=== PATIENT | female | born 1960 | race Caucasian/White ===

== ENCOUNTER → 2017-06-09 | Outpatient (CLI) | payer OTHER ==
[~2017-06-09] VITALS: Ht 167.6 cm; Wt 99.8 kg
[~2017-06-09] MED LIST: ALLEGRA ALLERG180 MG PO; CALCIUM 500 +1 EAC5 PO; FLEXERIL PO; HYDROCHLOROTHIA25 M2 PO; LISINOPRIL10 MG PO; LOVASTATIN40 MG PO; NAPROSYN500 MG PO; SYNTHROID75 MCG PO; TYLENOL EXTRA500 MG PO; UNICOMPLEX M TA1 TA1 PO; VITAMIN D3400 UNIT PO; YUVAFEM10 MCG VAG
--- NOTE | ~2017-06-09 | HPC ---
[facility] [place] [address] PAIN MANAGEMENT CONSULTATION Name: SONDRA SO Room #: REG [facility] Leana.#: [id number] Admission: 06/09/17 Attend Phys: Dayo Shen DO Discharge: Date of : 62 Report #: [id number] THIS REPORT FOR: //name// CC: Kayli Shen The patient is a 56-year-old female seen in consultation at the request of Dr. Kayli Mathis, [facility] for assistance with management of chronic axial back pain, low back and right hip. The patient notes the pain has been problematic for years, but worse in the past 7-8 months without specific antecedent trauma or overuse. She notes pain paradoxically is better with movement, typically ambulation and worse with rotational movements of the torso. She has tried Naprosyn, Tylenol and Medrol Dosepak with transient improvement. She does physical therapy exercises 4 out of 7 days. She walks daily for about 30 minutes every morning, but pain continues to be problematic. She rates it as a 7/10 on a VAS. She describes continuous, steady, burning, aching, sharp and stabbing pain. Again pain is primarily in the low back, right hip and buttock and does not radiate down her leg. She has no myelopathic symptoms (no bowel or bladder continence changes, no saddle anesthesia and no loss of proprioception or lower extremity weakness). REVIEW OF SYSTEMS: Complete review of systems was attached to the chart and was gone over with the patient. She is . She does not smoke or drink alcohol to excess. History of hypertension treated with lisinopril and hydrochlorothiazide. Recently diagnosed with hypothyroidism and started on levothyroxine about 6 months ago. Dyslipidemia for which she takes lovastatin. She has had some chronic GI issues and on no medications for the same. She is tolerating Naprosyn 500 mg b.i.d. reasonably well at this time. Prior surgeries include left knee arthroscopy and microfracture, left foot bone spur excision in 2009, sinus surgery in 1995 and hysterectomy in 2003. The patient works as a enterprise data architect. She is keen to work despite pain. Remaining review of systems was noncontributory (negative). Pain impact score is 23/70. PHYSICAL EXAMINATION: VITAL SIGNS: Reveals a 5 feet 6 inches, 220 pounds female, BMI is 35.5 kilograms per meter squared. Blood pressure is 132/84, pulse 83, respirations are 16. Subjective pain score is 7-8 on a VAS. HEENT: Cranial nerves 2-12 are grossly intact. Pupils are equal, react to light and accommodation. Extraocular muscles are intact NECK: Cervical range of motion is full. Thyroid is modestly enlarged. NEUROLOGIC: She is alert and oriented to person, place and time and judged to be a reasonable historian. Upper extremity strength is preserved. HEART: Regular rhythm without murmur. LUNGS: Clear to auscultation. [address] [address] PAIN MANAGEMENT CONSULTATION Name: MATT SONila Adan Room #: REG JACQUELINE Cristobal#: [id number] Admission: 06/09/17 Attend Phys: Dayo Shen DO Discharge: Date of : 62 Report #: [id number] MUSCULOSKELETAL: She has modestly endomorphic build. Rises from chair using armrest. Diffuse tenderness across the low back and tender over the SI joints. Rotation and sidebending do exacerbate low back pain. Lower extremity strength is symmetric. Patellar and Achilles reflexes are preserved. Straight leg raise is negative. Grossly positive Elmer test, Gaenslen's and pelvic distraction, right greater than left side. DIAGNOSTIC STUDIES: Include MRI of the lumbar spine from 05/19/2017. Notes L3-L4 to have a left extraforaminal lateral disk protrusion superimposed on a disk bulge with some endplate remodeling. This does abut the left L3 nerve root. L4-L5 notes moderate facet arthropathy with severe central stenosis. L5-S1 notes right paracentral foraminal disk protrusion and left foraminal to extraforaminal disk protrusion as well superimposed on a disk bulge with endplate osteophytes. ASSESSMENT: 1. Bilateral SI joint pain, right greater than left, mediated pain lumbosacral spondylosis without myelopathy. 2. Lumbar spondylosis and spinal stenosis on MRI. Axial back pain may be a neurogenic claudication equivalent, typically we see more "sciatica" type radicular pain pattern with a central stenosis; however axial back pain is seen in a certain percentage of patients; however, it is somewhat paradoxical that pain seems to be relieved with ambulation. Again by clinical exam, this definitely looks to be a primarily SI mediated pain. We will seek authorization for bilateral SI joint injection under fluoroscopy. The patient has been doing physical therapy and core strengthening exercises. We do have an MRI. She is taking Naprosyn 500 mg b.i.d. She has failed conservative therapy. <ELECTRONICALLY SIGNED> By: Dayo Shen DO 06/15/17 [id number] Dayo Shen DO /nt
[2017-06-09 13:50] VITALS: BP 132/84
== END ==
LOC: PAIN 07:14
DX: M53.3 Sacrococcygeal disorders, not elsewhere classified (principal); M47.897 Other spondylosis, lumbosacral region

== ENCOUNTER → 2019-01-10 | Outpatient (CLI) | payer OTHER ==
[~2019-01-10] VITALS: Ht 167.6 cm; Wt 108.2 kg
[~2019-01-10] MED LIST changes: +CRESTOR20 MG PO
--- NOTE | ~2019-01-10 | HPC ---
[facility] [address] [address] PAIN MANAGEMENT CONSULTATION Name: SONDRA SO Room #: REG JACQUELINE Leana.#: [id number] Admission: 01/10/19 Attend Phys: Jay Jay Deluca MD Discharge: Date of : 62 Report #: [id number] THIS REPORT FOR: //name// CC: Kayli Deluca DATE OF SERVICE: 01/10/2019 CHIEF COMPLAINT: Low back pain with radiation down the anterolateral aspect of the right thigh to the knee with hip pain. The patient is a pleasant 58-year-old. I am seeing today for the first time for what sounds like lumbar radiculopathy. She began experiencing pain about 3 months ago. The pain is worse and is now scored as a 5/10. It is worse as the day goes on. She starts each day with a walk with her . She is usually able to walk fairly well, but by the end of the walk begins to experience this radiating radicular leg pain. She has noted weakness in her right leg as well. Hip flexion particularly and she has difficulty going up steps. She has noted no foot drop. She has used ice for some relief from lying on her stomach. She takes no stronger opioid medications. She has used some [id number] relievers with some benefit. Pain is exacerbated by bending and lifting. MEDICATIONS: Estradiol, Tylenol Extra Strength up to 2000 mg a day, Flexeril on occasion for severe pain at night, vitamin __, Os-Juan, fexofenadine, naproxen sodium, Crestor, lisinopril, levothyroxine and hydrochlorothiazide. ALLERGIES: None. PAST MEDICAL HISTORY: Remarkable for sinus surgery in 1995, hysterectomy in 2003, arthroscopy, left knee in 2013 and she had some bone spur or surgeries performed in 2009. REVIEW OF SYSTEMS: Positive for some gastritis, multi-joint arthritis. She has complaints of nocturia and asthma. SOCIAL HISTORY: She currently works fulltime. She is an change analyst. She denies use of tobacco and alcohol. She denies use of marijuana. PHYSICAL EXAMINATION: GENERAL: Very pleasant 58-year-old female. She is 5 feet, 6 inches, 238 pounds, BMI is 38.5. VITAL SIGNS: Blood pressure 133/83, heart rate 103, respirations 20, O2 sat 95. [facility] [address] [place] [address] PAIN MANAGEMENT CONSULTATION Name: SONDRA SO Room #: REG [facility].#: [id number] Admission: 01/10/19 Attend Phys: Jay Jay Deluca MD Discharge: Date of : 62 Report #: [id number] HEENT: Normal. NECK: Supple. CHEST: Clear to auscultation. CARDIAC: Rhythm was regular with no audible murmur. MUSCULOSKELETAL: Examination of the spine reveals tenderness across the lumbosacral segment. Deep tendon reflexes are absent at knees and ankles. Straight leg raising is negative. She has some pain across the anterior thigh with prolonged standing. No focal weakness is noted. IMPRESSION: Right L4-L5 radiculopathy. I reviewed her MRI scan, which is a year old but shows a disk bulge with end-plate osteophytosis and moderate facet arthropathy at L4-L5. There is hypertrophy of the ligamentum flavum and moderate right and [id number]-di-[id number] left foraminal stenosis abutting the exiting L4 nerve roots. There is severe spinal stenosis at L4-L5. She also has similar findings with a right paracentral foraminal disk protrusion at L5 this abuts the L5 nerve root. This is consistent with her symptoms of an L4-L5, right lumbar radiculopathy. I recommended an epidural steroid injection, but we will need a preauthorization before we can go forward. She is scheduled for followup visit to perform the injection. I explained the procedure in some detail including risks, benefits. Questions were answered. A followup visit planned for epidural steroid injection as soon as possible. By: [id number] Jay Jay Deluca MD /nt
[2019-01-10 09:48] VITALS: BP 133/83
--- NOTE | 2019-01-10 10:04 | NUR ---
Pain Clinic Assessment: 1. History of Osteoarthritis: Left Lower Extremity Right Lower Extremity History of Rheumatoid Arthritis: Not Applicable 2. Height: 5 ft. 6 in. 167.6 cm. Weight: 238.6 lb. oz. 108.228 kg. Patient's BMI: 38.5 3. Vital Signs: BP: 133/83 Pulse: 103 Resp: 20 Temp: 02 Sat: 95 ECG Mon: 4. Pain Intensity: 5 5. Fall Risk: Dizziness: N Needs help standing or walking: N Fallen in the last 3 months: N Fall risk comments: 6. Patient on Blood Thinner: None 7. History of Hypertension: Y 8. Opioid Therapy greater than 6 weeks: N Opiate Contract Signed: 9. Risk Assessment Tool Provided: 0-LOW RISK 10. Functional Assessment Tool: 11. Recreational Drug Use: Never Drug Type: Tobacco Use: Never Smoker Tobacco Type: Amount or Packs/day: How Many Years: Alcohol Use: No Frequency: Quant:
== END ==
LOC: PAIN 06:50
DX: M54.16 Radiculopathy, lumbar region (principal); Z79.899 Other long term (current) drug therapy; Z90.710 Acquired absence of both cervix and uterus

== ENCOUNTER → 2019-01-21 | Outpatient (CLI) | payer OTHER ==
[~2019-01-21] VITALS: Ht 167.6 cm; Wt 107.0 kg
--- NOTE | ~2019-01-21 | HPC ---
[address] [address] PAIN MANAGEMENT CONSULTATION Name: SONDRA SO Room #: REG JACQUELINE Cristobal#: [id number] Admission: 01/21/19 Attend Phys: Jay Jay Deluca MD Discharge: Date of : 62 Report #: [id number] THIS REPORT FOR: //name// CC: Kayli Deluca DATE OF SERVICE: 01/21/2019 Followup visit for low back pain with radiculopathy. The patient was seen on 01/10/2019. Preauthorization was required before we could proceed with an injection. I recommended an epidural steroid injection after reviewing her MRI scan, which showed bulging endplate osteophytes, moderate facet arthropathy at L4-L5 and left foraminal stenosis abutting the exiting L4 nerve roots. She also had severe spinal stenosis L4-L5, L3-L4 and it was felt that the central stenosis was the cause of her right-sided symptoms. She is here today for that epidural injection. I have reviewed the procedure with her including risks and benefits. There have been no significant changes since her visit just 11 days ago. IMPRESSION: Low back pain with radiculopathy, right L4-L5 distribution secondary to spinal stenosis. PROCEDURE: Epidural steroid injection L4-L5, right paramedian approach. She was taken to fluoroscopic suite, placed prone, skin prepped with ChloraPrep. Skin anesthetized over the L4-L5 interspace. A 20-gauge Tuohy epidural needle advanced first attempt into the epidural space with loss of resistance. There was no blood or CSF aspirated. 1 mL of Omnipaque was injected. Good spread of dye observed into the epidural space followed by 3 mL of 0.5% lidocaine mixed with 80 mg of triamcinolone. She tolerated the procedure well and was observed in recovery room for 45 minutes and discharged. Pain score was 4/10. Follow up as needed. By: [id number] Jay Jay Deluca MD /nt
[2019-01-21 11:01] VITALS: BP 110/69
--- NOTE | 2019-01-21 11:24 | NUR ---
Pain Clinic Assessment: 1. History of Osteoarthritis: Left Lower Extremity Right Lower Extremity History of Rheumatoid Arthritis: DENIES 2. Height: 5 ft. 6 in. 167.6 cm. Weight: 235.8 lb. oz. 106.958 kg. Patient's BMI: 38.1 3. Vital Signs: BP: 110/69 Pulse: 81 Resp: 20 Temp: 02 Sat: 98 ECG Mon: 4. Pain Intensity: 6 5. Fall Risk: Dizziness: N Needs help standing or walking: N Fallen in the last 3 months: N Fall risk comments: 6. Patient on Blood Thinner: None 7. History of Hypertension: Y 8. Opioid Therapy greater than 6 weeks: N Opiate Contract Signed: 9. Risk Assessment Tool Provided: 0-LOW RISK 10. Functional Assessment Tool: 11. Recreational Drug Use: Never Drug Type: Tobacco Use: Never Smoker Tobacco Type: Amount or Packs/day: How Many Years: Alcohol Use: No Frequency: Quant:
== END | disposition home or self-care (01) ==
LOC: PAIN 06:47
DX: M54.16 Radiculopathy, lumbar region (principal); M48.061 Spinal stenosis, lumbar region without neurogenic claudication; G89.29 Other chronic pain; Z79.899 Other long term (current) drug therapy; Z98.890 Other specified postprocedural states; Z88.2 Allergy status to sulfonamides

== ENCOUNTER → 2019-02-25 | Outpatient (CLI) | payer OTHER ==
[~2019-02-25] VITALS: Ht 167.6 cm; Wt 109.3 kg
[2019-02-25 09:16] VITALS: BP 142/82
--- NOTE | 2019-02-25 09:23 | NUR ---
Pain Clinic Assessment: 1. History of Osteoarthritis: Left Lower Extremity Right Lower Extremity SPINE History of Rheumatoid Arthritis: DENIES 2. Height: 5 ft. 6 in. 167.6 cm. Weight: 241.0 lb. oz. 109.317 kg. Patient's BMI: 38.9 3. Vital Signs: BP: 142/82 Pulse: 78 Resp: 18 Temp: 02 Sat: 99 ECG Mon: 4. Pain Intensity: 3 5. Fall Risk: Dizziness: N Needs help standing or walking: N Fallen in the last 3 months: N Fall risk comments: 6. Patient on Blood Thinner: None 7. History of Hypertension: Y 8. Opioid Therapy greater than 6 weeks: N Opiate Contract Signed: 9. Risk Assessment Tool Provided: 0-LOW RISK 10. Functional Assessment Tool: 11. Recreational Drug Use: Never Drug Type: Tobacco Use: Never Smoker Tobacco Type: Amount or Packs/day: How Many Years: Alcohol Use: Yes Frequency: Special Occasions Quant: 1-2 PER YEAR
== END | disposition home or self-care (01) ==
LOC: PAIN 02-21 09:26
DX: M54.16 Radiculopathy, lumbar region (principal); M48.061 Spinal stenosis, lumbar region without neurogenic claudication; M19.90 Unspecified osteoarthritis, unspecified site; Z79.899 Other long term (current) drug therapy; Z88.2 Allergy status to sulfonamides; Z88.8 Allergy status to other drugs, medicaments and biological substances